=== PATIENT | male | born 1950 | race Caucasian/White ===

== ENCOUNTER 2018-07-11 12:39 | Emergency (ER) | payer MEDICARE, OTHER, MEDICAID | END 2018-07-11 14:23 | disposition home or self-care (01) | LOC: FTE 12:39 | DX: S59.902A Unspecified injury of left elbow, initial encounter (principal); I10 Essential (primary) hypertension; R51 Headache; W18.39XA Other fall on same level, initial encounter; Y92.9 Unspecified place or not applicable; Z87.891 Personal history of nicotine dependence | CPT/HCPCS: 70450; 72040; 73080-LT; 99284-25 ==

== ENCOUNTER 2018-10-20 10:36 | Emergency (ER) | payer MEDICARE, OTHER ==
[2018-10-20] MEDS: KETOROLAC 30 MG INJ IM (11:53)
== END 2018-10-20 12:30 | disposition home or self-care (01) ==
LOC: FTE 10:36
DX: K40.91 Unilateral inguinal hernia, without obstruction or gangrene, recurrent (principal); I10 Essential (primary) hypertension; I25.2 Old myocardial infarction; Z87.891 Personal history of nicotine dependence
CPT/HCPCS: 96372; 99284-25

== ENCOUNTER → 2018-11-13 | Day surgery (SDC) | payer MEDICARE, OTHER ==
[~2018-11-13] MED LIST: CEFAZOLIN 2 GM/50 ML (PMX) 50 ML IVPB; SOD CHLORIDE 0.9% 1,000 ML IV
== END | disposition home or self-care (01) ==
LOC: SDS 14:12
DX: K40.90 Unilateral inguinal hernia, without obstruction or gangrene, not specified as recurrent (principal); Z53.8 Procedure and treatment not carried out for other reasons

== ENCOUNTER 2018-11-20 08:43 | Emergency (ER) | payer MEDICARE, OTHER | END 2018-11-20 10:24 | disposition home or self-care (01) | LOC: E/R 08:43 | DX: K40.90 Unilateral inguinal hernia, without obstruction or gangrene, not specified as recurrent (principal); I10 Essential (primary) hypertension; Z87.891 Personal history of nicotine dependence; Z95.0 Presence of cardiac pacemaker | CPT/HCPCS: 99283 ==

== ENCOUNTER 2018-12-04 10:23 | Day surgery (SDC) | payer MEDICARE, OTHER ==
[~2018-12-04 10:23] MED LIST changes: +SEVOFLURANE 15 MIN; -SOD CHLORIDE 0.9% 1,000 ML IV
[2018-12-04] MEDS: SOD CHLORIDE 0.9% 1,000 ML IV (11:20)
[2018-12-04] MEDS ORDERED: BUPIVACAINE 0.25% (MPF) 30 ML INJ (12:09)
[2018-12-04] MEDS ORDERED: ROCURONIUM 50 MG INJ ×2 (12:27→13:33)
[2018-12-04] MEDS ORDERED: SUCCINYLCHOLINE CHLORIDE 100 MG/5 ML SYG IV (12:27)
[2018-12-04] MEDS ORDERED: PROPOFOL 20 ML (12:27)
[2018-12-04] MEDS ORDERED: FENTAnyl 50 MCG/ML VIAL ×2 (12:27→13:33)
[2018-12-04] MEDS ORDERED: MIDAZOLAM 1 MG/ML 2 ML INJ (12:27)
[2018-12-04] MEDS ORDERED: LIDOCAINE 100 MG SYRINGE (12:27)
[2018-12-04] MEDS ORDERED: CEFAZOLIN 1 GM INJ (12:49)
[2018-12-04] MEDS ORDERED: DEXAMETHASONE 4 MG/ML 5 ML INJ (12:50)
[2018-12-04] MEDS ORDERED: ONDANSETRON 4 MG INJ (12:50)
[2018-12-04] MEDS ORDERED: SUGAMMADEX SODIUM 200 MG/2 ML VIAL IV (12:50)
[2018-12-04] MEDS ORDERED: MEPERIDINE 25 MG INJ IV (13:30)
[2018-12-04] MEDS ORDERED: HYDROmorphONE 1 MG/5 ML IV SYRINGE IV ×2 (13:30)
[2018-12-04] MEDS ORDERED: DIPHENHYDRAMINE 50 MG INJ IV (13:30)
[2018-12-04] MEDS: POLYMYXIN/BACITRACIN 1L IRRIG (13:32)
[2018-12-04] MEDS: BUPIVACAINE 0.5% (SDV) 30 ML INJ (13:51)
[2018-12-04] MEDS: LIDOCAINE 1% (MPF) 30 ML INJ (13:51)
[2018-12-04] MEDS ORDERED: KETOROLAC 30 MG INJ (13:54)
[2018-12-04] MEDS: HYDROmorphONE 1 MG/5 ML IV SYRINGE IV ×2 (14:47→15:10)
[2018-12-04] MEDS: ONDANSETRON 4 MG INJ IV (14:48)
[2018-12-04] MEDS: HYDROCODONE/APAP (5/325) TAB PO (16:13)
[2018-12-04] MEDS: CARISOPRODOL 350 MG TAB PO (17:21)
== END 2018-12-04 17:25 | disposition home or self-care (01) ==
LOC: SDS 10:23
DX: K40.90 Unilateral inguinal hernia, without obstruction or gangrene, not specified as recurrent (principal); I10 Essential (primary) hypertension; I25.2 Old myocardial infarction; B19.20 Unspecified viral hepatitis C without hepatic coma; Z95.0 Presence of cardiac pacemaker; Z79.82 Long term (current) use of aspirin
CPT/HCPCS: 49505; 71045

== ENCOUNTER 2019-03-20 06:11 | Emergency (ER) | payer MEDICARE, OTHER ==
[2019-03-20] MEDS: ACETAMINOPHEN 500 MG TAB PO (07:09)
[2019-03-20] MEDS: ONDANSETRON 4 MG INJ IV (07:09)
[2019-03-20] MEDS: SOD CHLORIDE 0.9% 1,000 ML IV (07:10)
== END 2019-03-20 08:06 | disposition home or self-care (01) ==
LOC: FTE 06:11
DX: R53.83 Other fatigue (principal); F17.210 Nicotine dependence, cigarettes, uncomplicated; I10 Essential (primary) hypertension; Z79.82 Long term (current) use of aspirin; Z95.0 Presence of cardiac pacemaker
CPT/HCPCS: 36415; 96374; 99284-25